=== PATIENT | female | born 1950 | race Caucasian/White ===

== ENCOUNTER → 2024-02-29 | Outpatient (CLI) | payer MEDICARE, OTHER ==
--- NOTE | 2024-02-29 14:36 | CT ---
INDICATION: Patient age:Female; 73 years old; Reason for study: [facility] Protocol for right knee replacement, M17.11 OA KNEE; PHH. COMPARISON: None TECHNIQUE: Thin section axial CT imaging of the entire right lower extremity was performed per [facility] protocol, wi thout the administration of IV contrast. Additional axial images of the bilateral hips and ankles wit h other knee were also obtained. Reformatted images in coronal and sagittal views obtained. FINDINGS: Diffuse bone demineralization. There is no evidence of acute fracture or dislocation. The hips are grossly unremarkable. Sclerotic bone island within the posterior left acetabulum. Right knee demonstrates advanced tricompartmental joint space narrowing with sclerosis and marginal o steophytosis. Subchondral cystic changes identified most prominently involving the medial tibiofemora l joint space with [id number] contact. Loose bodies identified along the posterior and anterior lat eral aspect of the medial tibiofemoral joint. Trace joint effusion. Incidental fabella. Additional Ba ker's cyst identified measuring 2.2 x 0.8 x 2.5 cm. Mild calcification of the arterial vasculature. The ankles grossly unremarkable. Bilateral posterior calcaneal enthesophytes. The visualized soft tissues appear grossly unremarkable within the limits of unenhanced CT. IMPRESSION: 1. [facility] protocol for right knee joint replacement. Advanced osteoarthritic changes of the right knee . [facility], , 02/29/2024 2:34 PM
== END | disposition home or self-care (01) ==
LOC: RADCTMAIN 13:14
PROVIDERS: ATTEND Orthopaedic Surgery
DX: M17.11 Unilateral primary osteoarthritis, right knee (principal); M71.21 Synovial cyst of popliteal space [Baker], right knee; M25.461 Effusion, right knee; F17.210 Nicotine dependence, cigarettes, uncomplicated; Z68.25 Body mass index [BMI] 25.0-25.9, adult; Z96.651 Presence of right artificial knee joint

== ENCOUNTER 2024-04-16 14:10 | Day surgery (SDC) | payer MEDICARE, OTHER ==
[~2024-04-16 14:10] MED LIST: DEXAMETHASONE SOD PHOSPHATE 4 MG/ML 1 ML VIAL IV ONE; HYDROmorphone 0.5 MG/0.5 ML SYRINGE IVP PRN; ONDANSETRON 4 MG/2 ML VIAL IVP ONE; TRANEXAMIC 1,000 MG/100ML-NACL 1,000 MG in SALINE 1 100ML.BAG IV PRN; TRANEXAMIC 1,000 MG/100ML-NACL 1,000 MG in SALINE 1 100ML.BAG IVPB PRN
[2024-04-16] MEDS: ACETAMINOPHEN TAB 500 MG TAB PO PRN (14:41)
[2024-04-16] MEDS: ONDANSETRON 4 MG/2 ML VIAL IVP PRN (14:42)
[2024-04-16] MEDS: IV FLUID CONTINUATION 1,000 ML IV ONE ×2 (14:42→19:41)
[2024-04-16] MEDS: LACTATED RINGERS 1,000 ML IV SCH (14:42)
[2024-04-16] MEDS: DOCUSATE 100 MG CAP PO PRN (14:42)
[2024-04-16] MEDS: oxyCODONE ER 10 MG TAB.ER.12H PO PRN (14:42)
[2024-04-16] MEDS: DEXAMETHASONE SOD PHOSPHATE 10 MG/ML 1 ML VIAL IV PRN (14:43)
[2024-04-16] MEDS: KETOROLAC 15 MG/ML 1 ML VIAL IVP PRN (14:43)
[2024-04-16] MEDS: FAMOTIDINE 20 MG/2 ML VIAL IVP PRN (14:43)
[2024-04-16 15:02] LABS: African American GFR (CKD) 63 (>60 ml/min/1.73 sqM); Anion Gap 7 mmol/L; Blood Urea Nitrogen 25 mg/dL (7-17); Calcium 9.7 mg/dL (8.4-10.2); Carbon Dioxide 29 mmol/L (22-30); Chloride 102 mmol/L (98-107); Glucose 94 mg/dL (74-99); Non-African American GFR(CKD) 54 (>60 ml/min/1.73 sqM); Potassium 4.5 mmol/L (3.5-5.1); Sodium 138 mmol/L (137-145)
[2024-04-16] MEDS: MIDAZOLAM 2 MG/2 ML VIAL IV ONE (15:20)
[2024-04-16] MEDS: fentaNYL (PF) 50 MCG/ML 2 ML AMP IVP PRN (15:20)
--- NOTE | 2024-04-16 15:38 | P.ANPRN ---
Procedure Note - Anesthesia - Nerve Block Performed Right Adductor Canal Single Time Out Performed: Yes (1520) Date of Procedure: 04/16/24 Procedure Start Time: 15: Procedure Stop Time: 15: Location of Patient: PreOp Indication: Acute Post-Operative Pain, Requested by Surgeon Specifically requested for management of pain by DrArleth: Dion Combs Sedation Type: Sedate with meaningful contact maintained Preparation: Sterile Prep Position: Supine Catheter: None Needle Types: Pajunk Needle Gauge: 21 Ultrasound used to visualize needle placement: Yes Ultrasound used to observe medication spread: Yes Injectate: 0.5% Ropivacaine (see comment for volume) (15cc+10cc nacl pf) Blood Aspirated: No Pain Paresthesia on Injection Noted: No Resistance on Injection: Normal Image Stored and Saved: Yes Events: Uneventful and Well Tolerated
--- NOTE | 2024-04-16 15:39 | P.ANPRN ---
Procedure Note - Anesthesia - Nerve Block Performed Right iPack Single Time Out Performed: Yes (1520) Date of Procedure: 04/16/24 Procedure Start Time: Procedure Stop Time: Location of Patient: PreOp Indication: Acute Post-Operative Pain, Requested by Surgeon Specifically requested for management of pain by DrArleth: Dion Combs Sedation Type: Sedate with meaningful contact maintained Preparation: Sterile Prep Position: Supine Catheter: None Needle Types: Pajunk Needle Gauge: 21 Ultrasound used to visualize needle placement: Yes Ultrasound used to observe medication spread: Yes Injectate: 0.5% Ropivacaine (see comment for volume) (15cc+10cc nacl pf coming in everything like that and he is like) Blood Aspirated: No Pain Paresthesia on Injection Noted: No Resistance on Injection: Normal Image Stored and Saved: Yes Events: Uneventful and Well Tolerated
[2024-04-16] MEDS ORDERED: LIDOCAINE 1% INJ 10MG/ML (20 ML MDV) ONE (16:33)
[2024-04-16] MEDS ORDERED: NEOSTIGMINE 1 MG/ML 10 ML VIAL ONE (16:33)
[2024-04-16] MEDS ORDERED: GLYCOPYRROLATE 0.2 MG/ML 2 ML VIAL ONE (16:33)
[2024-04-16] MEDS ORDERED: ROPIVACAINE 5 MG/ML 30 ML VIAL ONE (16:33)
[2024-04-16] MEDS ORDERED: TRANEXAMIC 1,000 MG/100ML-NACL PREMIX BAG ONE (16:33)
[2024-04-16] MEDS ORDERED: HYDROmorphone (PF) 1 MG/ML ONE (16:33)
[2024-04-16] MEDS ORDERED: ROCURONIUM 10 MG/ML (5 ML VIAL) IV ONE (16:33)
[2024-04-16] MEDS ORDERED: ePHEDrine 50 MG/ML 1 ML VIAL ONE (16:33)
[2024-04-16] MEDS ORDERED: PROPOFOL 10 MG/ML 20 ML VIAL IV ONE (16:33)
[2024-04-16] MEDS ORDERED: fentaNYL (PF) 50 MCG/ML 2 ML AMP ONE (16:33)
[2024-04-16] MEDS ORDERED: SUCCINYLCHOLINE CHLORIDE 200 MG/10 ML VIAL IV ONE (16:33)
[2024-04-16] MEDS ORDERED: SODIUM CHLORIDE 0.9% (PF) 10 ML VIAL ONE (16:33)
[2024-04-16] MEDS: ROPIVACAINE/EPI/CLONIDINE/KET 50 ML SYRINGE MISCELLANE PRN (17:18)
[2024-04-16] MEDS ORDERED: NALOXONE 0.4 MG/ML 1 ML VIAL IV PRN (18:46)
[2024-04-16] MEDS ORDERED: ONDANSETRON 4 MG/2 ML VIAL IVP PRN (18:46)
[2024-04-16] MEDS ORDERED: diazePAM 5 MG TAB PO PRN ×2 (18:46)
[2024-04-16] MEDS ORDERED: hydrOXYzine pamoate 25 MG CAP PO PRN (18:46)
[2024-04-16] MEDS ORDERED: MAGNESIUM HYDROXIDE 2,400 MG/30 ML CUP PO PRN (18:46)
[2024-04-16] MEDS ORDERED: HYDROcodone/APAP 10-325MG 1 EACH TAB PO PRN (18:46)
[2024-04-16] MEDS ORDERED: HYDROmorphone 0.5 MG/0.5 ML SYRINGE IVP PRN ×3 (18:46)
[2024-04-16] MEDS ORDERED: bisacodyL 10 MG SUPP RECTAL PRN (18:46)
[2024-04-16] MEDS ORDERED: NA PHOS,M-B/NA PHOS,DI-BA 133 ML ENEMA RECTAL PRN (18:46)
--- NOTE | 2024-04-16 19:35 | P.OP ---
Date of Procedure: 04/16/24 Preoperative Diagnosis: 1. 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 Former cigarette smoker Postoperative Diagnosis: Same Procedure(s) Performed: 1. Right total knee arthroplasty 2. Computer assisted musculoskeletal navigation using CT/MRI images Implants: 1. [place] [employer] CR Femur Size #5 2. Danielle [employer] Florien Tibial Base Size #4 with 12x50 mm stem 3. Danielle [employer] CS poly Size #4, 9-mm 4. [place] [employer] all poly patella, Size #32 Anesthesia: VALENTINA, regional Surgeon: Dion Combs Note Teller #1: Bassem Quintero Estimated Blood Loss (ml): 100 IV fluids (ml): 400 Pathology: none sent Condition: stable Disposition: PACU Indications for Procedure: I met with the patient preoperatively in the office setting and discussed treatment of their symptomatic knee arthritis. They failed a long course of nonsurgical treatment and elected to proceed with an elective total knee replacement. I discussed the potential risks and complications at length and ga ve them ample time to ask questions. Risks discussed included: risks from anesthesia, superficial site surgical infection, acute and/or chronic periprosthetic joint infection, delayed wound healing, drainage, wound necrosis, instability, stiffness, stiffness requiring manipulation and/or revision surgery, damage to local blood vessels or nerves, aseptic loosening of the implants, extensor mechanism issues including disruption, patellar maltracking, avascular necrosis etc., continued or worsened knee pain, generalized dissatisfaction with surgical outcome, need for revision surgery, an inability to regain preinjury level of function, DVT, PE, other medical complications, and possibly loss of life or limb. The patient voiced their understanding that while these are the most common complications other less common complications are possible. They provided both their verbal and written consent to go forward with surgery. The patient also has a history of smoking. She was able to quit prior to surgery. She was advised to refrain from smoking in the post operative period to lower her risk of infection and delayed wound healing. Operative Findings: Severe right knee arthritis with 18-degree preoperative flexion contracture and 12.5 degrees of varus Description of Procedure: The patient was identified in preoperative holding and the correct operative extremity was verified and marked with a marker. I reviewed the consent form with the patient at length. All of their questions were answered. The patient was given a block by anesthesia. They were then brought back to the operating room. They were transferred onto the operating room table where a general anesthetic, preoperative antibiotics, and tranexamic acid were administered by anesthesia. A tourniquet was applied to the proximal aspect of the operative extremity. The contralateral extremity was padded under the heel and secured to the operating room table with a nonsterile blue towel and tape. The ipsilateral arm was carefully draped across the patient's chest and secured with a pillow and foam. A post was applied over the lateral aspect of the ipsilateral thigh and a bolster was placed under the ipsilateral foot. I verified that the operative extremity was stable and the knee was flexed to 90. The operative extremity was then placed in a leg walter, nonsterile drapes were applied, and the extremity was prepped and draped sterilely in the standard sterile fashion. Prior to starting surgery timeout was performed identifying the correct patient, operative extremity, and procedure. The leg was then elevated, exsanguinated with an Esmarch bandage, and the tourniquet was inflated. An anterior midline incision was made sharply with a scalpel. Once I had dissected deep to the superficial fascial layer medial and lateral flaps were elevated. A medial parapatellar arthrotomy was created. Upon opening the knee joint there were diffuse arthritic changes in all 3 compartments. The anterior horn of the medial meniscus were sharply released and a medial release was performed around the posterior medial corner of the knee to facilitate retractor placement. The fat pad was excised with electrocautery. The patella was found to be severely arthritic and a provisional cut was made with a sagittal saw to facilitate mobilization of the extensor mechanism during the procedure. Remnants of the ACL and PCL were then excised from the notch. 4 mm pins were then placed within the incision in the medial distal femur and proximal tibia. Arrays were applied to the pins and I verified they were completely tightened. The knee was then registered with the [employer] robot and manipulations in implant position were made to balance the knee and opitmize implant position. Using the [employer] robotic saw all cuts were made in accordance with our plan. After all bony fragments had been removed the cuts were verified with the planar probe. The tibia was then subluxed forward and sized. The knee was brought into flexion and a lamina signing teacher was placed to allow removal of the meniscal remnants both medially and laterally as well as posterior osteophytes. Local anesthetic was then infiltrated around the joint capsule. Trial implants were then placed within the knee. Range of motion and collateral ligament tension was then evaluated. Adjustments in implant size and position were then made accordingly. Once the knee was felt to be appropriately balanced the Yosvany pins were removed. The patella was then recut, sized, and punched. A trial patellar button was then placed. With the trial components in place, the patella tracked midline. The femur was then drilled and the trial component removed. The trial tibial component was then appropriately rotated, pinned, and prepared for the keel. All trial components were then removed from the knee. The knee was thoroughly irrigated with pulsatile lavage. Cement was prepared via vacuum mixing in a bowl on the back table. I then hand pressurized cement into the femur and tibia and placed the implants beginning with the tibial base tray and poly liner, femoral component, and finally the patellar button. All extruded cement was removed including from the pin sites. Once the cement had hardened the knee was evaluated one final time with the final polyethylene liner in place. The knee had full extension and flexion and felt stable to varus and valgus stress throughout the arc of motion. The tourniquet was released and with the tourniquet down the patella tracked midline. All bleeders were controlled with electrocautery. The knee was then soaked for 3 minutes with a dilute Betadine soak. The knee was thoroughly irrigated using 3 L of sterile saline and pulsatile lavage. The extensor mechanism was then reapproximated using pop off Vicryl sutures followed by a running barbed suture. The knee was then closed in layers with a 0 strata fix for the deep fascial layer, 2-0 strata fix for the superficial subcutaneous layer and Monocryl and Steri-Strips for the skin. A sterile dressing was applied. I verified that all instrument, sponge, and sharp counts were correct. The patient was then transferred off the operating room table, extubated, and brought to recovery having tolerated the procedure well. Bassem Quintero PA-C was required as a skilled special education teaching assistant for patient positioning, draping, exposure, retraction, closure of wound and application of dressing PLAN: The patient can weight-bear as tolerated on the operative extremity. DVT prophylaxis with aspirin 81 mg twice a day based on preoperative risk stratification. Internal medicine for perioperative medical management. 2 doses of post-operative antibiotics. Physical therapy for gait training. Follow-up in the office in 2 weeks for wound check and x-rays of the knee including an AP and lateral.
--- NOTE | 2024-04-16 19:38 | XR ---
EXAMINATION TYPE: XR knee limited RT DATE OF EXAM: 04/16/2024 CLINICAL HISTORY: Postoperative evaluation Two views of the right knee are submitted. Identified are changes of total knee arthroplasty with femoral and tibial components appearing well seated. Postsurgical soft tissue changes are noted. Alignment is anatomic. [facility], , 04/16/2024 7:36 PM
[2024-04-16] MEDS: SENNOSIDES-DOCUSATE SODIUM 1 EACH TAB PO SCH (22:18)
[2024-04-16] MEDS: ASPIRIN 81 MG PO SCH (22:18)
[2024-04-16] MEDS: SODIUM CHLORIDE 0.9% 1,000 ML IV SCH (22:21)
--- NOTE | 2024-04-17 08:18 | P.DS ---
Providers Attending physician: Dion Combs Consults: 04/16/24 18:46 Consult Physician Routine Consulting Provider: Mally Christiansen Consult Reason/Comments: post op medical management Do you want consulting provider notified?: Yes Primary care physician: Mally Christiansen MD Hospital Course: This is a 73-year-old female patient, with past medical history of severe knee osteoarthritis, who failed nonsurgical conservative management. On 04/16/2024 the patient presented to the [facility] pre-op department for scheduled total knee arthroplasty. The patient tolerated the procedure well. The patient was transferred to the orthopedic floor. The patient had no acute events over night. The patient's pain has been well-controlled. Patient was examined at bedside. Patient is resting comfortably sitting on the edge of the bed. No apparent distress. They are awake, alert and able to answer questions. On inspection the surgical knee dressing is intact, there is no drainage or strikethrough. The skin surrounding the dressing is free of erythema. There is mild swelling in the operative thigh. Operative femoral nerve function is intact. The operative calf is soft to compression. The patient is able to actively plantarflex and dorsiflex their operative ankle and toes. Plan to discharge home today. Plan follow up in two weeks in our office. Please see med rec for a list of accurate medications. Dictation was produced using [employer] dictation software, please excuse any grammatical, word or spelling errors. Assessment: Postop day #1 status post right total knee arthroplasty for severe osteoarthritis by Dr. Combs Right knee pain Plan - Discharge Summary Discharge Rx Participant: No New Discharge Prescriptions: New Aspirin 81 mg PO BID #60 tab Docusate [Colace] 100 mg PO BID #60 capsule Ondansetron [Zofran] 4 mg PO Q8HR PRN #20 tab PRN Reason: Nausea HYDROcodone/APAP 5-325MG [[place] 5] 1 - 2 each PO Q6HR PRN #56 tab PRN Reason: Pain Omeprazole [PriLOSEC] 40 mg PO DAILY #30 cap Meloxicam 7.5 mg PO DAILY #30 tab No Action traMADol HCL 50 mg PO Q6H PRN PRN Reason: Breakthrough Pain lisinopriL [Prinivil] 20 mg PO DAILY Chlorthalidone 25 mg PO DAILY Meloxicam [Mobic] 15 mg PO DAILY Discharge Medication List Chlorthalidone 25 mg PO DAILY 04/14/24 [History] Meloxicam [Mobic] 15 mg PO DAILY 04/14/24 [History] lisinopriL [Prinivil] 20 mg PO DAILY 04/14/24 [History] traMADol HCL 50 mg PO Q6H PRN 04/14/24 [History] Aspirin 81 mg PO BID #60 tab 04/17/24 [Rx] Docusate [Colace] 100 mg PO BID #60 capsule 04/17/24 [Rx] HYDROcodone/APAP 5-325MG [[place] 5] 1 - 2 each PO Q6HR PRN #56 tab 04/17/24 [Rx] Meloxicam 7.5 mg PO DAILY #30 tab 04/17/24 [Rx] Omeprazole [PriLOSEC] 40 mg PO DAILY #30 cap 04/17/24 [Rx] Ondansetron [Zofran] 4 mg PO Q8HR PRN #20 tab 04/17/24 [Rx] Follow up Appointment(s)/Referral(s): Dion Combs MD [Medical Doctor] - 2 Weeks Activity/Diet/Wound Care/Special Instructions: 1. Weight-bear as tolerated on your operative extremity unless instructed otherwise. Use a walker or other assistive device to ambulate. 2. Leave surgical dressing in place. If your dressing becomes saturated with blood, there is drainage, or the dressing becomes loose please contact the office. 3. It is okay to shower with your surgical dressing, but do not submerge in water (no hot tubs, bath's, swimming etc.) 4. Take your blood clot prevention medication as prescribed (aspirin, Eliquis, Xarelto, and Plavix are commonly prescribed medications for blood clot prevention) 5. While taking Huron or Percocet for pain take a stool softener (Ex: Colace) and drink lots of water. 6. Keep all follow-up appointments as scheduled. You will usually be seen in 1-2 weeks following surgery. 7. Please contact the office with any questions or concerns [phone] Discharge Disposition: HOME WITH HOME HEALTH SERVICES
[2024-04-17] MEDS: HYDROcodone/APAP 5-325MG 1 EACH TAB PO PRN (08:25)
[2024-04-17 08:51] LABS: Basophils # (A) 0.02 X 10*3/uL (0.00-0.10); Basophils % (A) 0.1 %; Eosinophils # (A) 0 X 10*3/uL (0.04-0.35); Eosinophils % (A) 0 %; HCT 33.7 % (37.2-46.3); HGB 10.4 g/dL (12.0-15.0); Lymphocytes # (A) 1.15 X 10*3/uL (0.90-5.00); Lymphocytes % (A) 5.9 %; MCH 29.7 pg (27.0-32.0); MCHC 30.9 g/dL (32.0-37.0); MCV 96.3 FL (80.0-97.0); Monocytes % (A) 5.1 %; NRBC Per 100 WBC 0 X 10*3/uL (0.00-0.01); Neutrophils # (A) 17.17 X 10*3/uL (1.80-7.70); Neutrophils % (A) 88.4 %; Platelet Count 372 X 10*3/uL (140-440); RDW 12.3 % (11.5-14.5); WBC 19.44 X 10*3/uL (4.50-10.00)
[2024-04-17 09:31] VITALS: BP 139/67; PULSE 73; RESP 16; TEMP 97.6
--- NOTE | 2024-04-17 10:58 | P.CONS ---
History of Present Illness - Reason for Consult Consult date: 04/17/24 Medical Management Requesting physician: Dion Combs - History of Present Illness History of Presenting Illness: Patient is a pleasant 73-year-old female with a past medical history of hypertension, GERD, and osteoarthritis. She is currently admitted under orthopedic surgery team status post right total knee arthroplasty. Surgical procedure was completed secondary to severe right varus knee deformity with flexion contracture. Surgical procedure was completed by Dr. Combs. We were consulted for medical management throughout hospitalization. Patient was seen and fully evaluated in room 481. She is postoperative day 1. Patient was sitting up in the chair and appears to be doing well. She reports feeling mild to moderate postoperative pain but states she does receive relief from current pain medication regimen. She denies having any postoperative nausea or vomiting, denies having any difficulties with urination, and denies having any numbness/tingling/weakness in her extremities. Patient denies having any other complaints including headache, lightheadedness, dizziness, chest pain, palpitations, shortness of breath, abdominal pain, nausea, or vomiting. Review of systems: Pertinent positives and negatives as discussed in HPI, a complete review of systems was performed and all other systems are negative. Physical exam: Vital signs reviewed and stable. General: Nontoxic, no distress and appears stated age. Derm: Skin warm and dry, normal coloration for ethnicity. Head: Atraumatic, normocephalic and symmetric. Eyes: EOM's intact, no lid lag, and anicteric sclera Mouth: no lip lesions, mucus membranes moist Cardiovascular: regular rate and rhythm with normal S1S2, no murmur, positive posterior tibial pulses bilaterally, and cap refill < 2 seconds. Lungs: Respirations even, regular, and unlabored on room air. Lungs CTA bilaterally, no rhonchi, no rales, no wheezing, and no accessory muscle usage. Abdominal: soft, nontender to palpation, no guarding, no appreciable organomegaly Ext: No gross muscle atrophy, no edema, no contractures. Movement and sensation intact. Postsurgical dressing/Dylan wrap with ice pack in place to right knee. Neuro: Speech clear, face symmetrical and CN II-XII grossly intact with no noted focal neuro deficits Psych: Alert and oriented to person, place, time, and situation. Appropriate and pleasant affect. Assessment and Plan of Care: Status post right total knee arthroplasty -Management per primary admitting orthopedic surgery team including DVT prophylaxis, pain management, wound/dressing management, weightbearing, and PT/OT. -Currently DVT prophylaxis with aspirin 81 mg twice daily. Postoperative leukocytosis -WBC count 19.44. No signs of infection. This is believed to be reactive secondary to surgical procedure. No need for further intervention at this time. Acute postoperative blood loss anemia -Stable and expected finding, no need for transfusion or further interventions at this time. Hypertension -Monitor vital signs and continue daily medication regimen with lisinopril 20 mg daily and chlorthalidone 25 mg daily. GERD -Continue Prilosec 40 mg daily. Data reviewed: -Postoperative labs reviewed. CBC showing leukocytosis with WBC count of 19.44 and acute postoperative blood loss anemia with hemoglobin of 10.4. BMP revealed mild prerenal azotemia with BUN of 25 otherwise normal findings. -Vital signs reviewed and stable. Blood pressure 139/67, heart rate 73, respiratory rate 16, temp 97.6 F, and SpO2 of 97% on room air. Patient is medically optimized for discharge once cleared by primary admitting orthopedic surgery team. Thank you for allowing us to participate in the care of this pleasant patient. Do not hesitate to contact us with questions. [facility] can be [facility] all hours of the day at [phone] or via [employer]. Patient was seen independently by Nurse Practitioner. This document was prepared using [employer] dictation software. Please allow for errors in tattooer while rare they do occur. Raman Wyman NP rendered care for this patient independently, reviewed the findings and plan as documented in the note above and agree with plan. I did not physically speak with or examine the patient on this date. Past Medical History Past Medical History: Hypertension History of Any Multi-Drug Resistant Organisms: None Reported Past Surgical History: No Surgical Hx Reported Past Anesthesia/Blood Transfusion Reactions: Unable to Obtain Past Psychological History: No Psychological Hx Reported Smoking Status: Former smoker Past Alcohol Use History: None Reported Additional Past Alcohol Use History / Comment(s): quit a few month ago. Past Drug Use History: None Reported - Past Family History Father Family Medical History: No Reported History Medications and Allergies Home Medications Medication Instructions Recorded Confirmed Type Chlorthalidone 25 mg PO DAILY 04/14/24 04/14/24 History Meloxicam [Mobic] 15 mg PO DAILY 04/14/24 04/14/24 History lisinopriL [Prinivil] 20 mg PO DAILY 04/14/24 04/14/24 History traMADol HCL 50 mg PO Q6H PRN 04/14/24 04/14/24 History Aspirin 81 mg PO BID #60 tab 04/17/24 Rx Docusate [Colace] 100 mg PO BID #60 capsule 04/17/24 Rx HYDROcodone/APAP 5-325MG [[place] 5] 1 - 2 each PO Q6HR PRN #56 tab 04/17/24 Rx Meloxicam 7.5 mg PO DAILY #30 tab 04/17/24 Rx Omeprazole [PriLOSEC] 40 mg PO DAILY #30 cap 04/17/24 Rx Ondansetron [Zofran] 4 mg PO Q8HR PRN #20 tab 04/17/24 Rx Allergies Allergy/AdvReac Type Severity Reaction Status Date / Time No Known Allergies Allergy Verified 04/16/24 14:28 Physical Exam Vitals: Vital Signs Temp Pulse Pulse Resp BP BP BP 04/17/24 07:30 97.6 F 73 16 04/17/24 01:14 97.5 F L 80 14 109/63 04/16/24 21:54 77 104/61 04/16/24 21:39 78 102/55 04/16/24 21:24 81 107/62 04/16/24 21:09 89 117/65 04/16/24 20:54 98.0 F 93 16 114/67 04/16/24 20:33 83 16 105/59 04/16/24 20:17 83 14 97/55 04/16/24 20:03 84 16 99/54 04/16/24 19:48 93 16 112/58 04/16/24 19:33 85 16 103/55 04/16/24 19:19 82 16 99/54 04/16/24 19:03 97.9 F 95 14 105/55 04/16/24 15:30 70 16 129/64 04/16/24 14:37 98.2 F 92 16 137/73 BP Pulse Ox 04/17/24 07:30 139/67 97 04/17/24 01:14 96 04/16/24 21:54 93 L 04/16/24 21:39 92 L 04/16/24 21:24 92 L 04/16/24 21:09 95 04/16/24 20:54 95 04/16/24 20:33 97 04/16/24 20:17 98 04/16/24 20:03 94 L 04/16/24 19:48 98 04/16/24 19:33 98 04/16/24 19:19 99 04/16/24 19:03 97 04/16/24 15:30 99 04/16/24 14:37 97 Intake and Output 04/16/24 04/17/24 04/17/24 22:59 06:59 14:59 Intake Total 850 Output Total 100 Balance 750 Intake: IV 850 Output: Estimated Blood Loss 100 Other: # Voids 1 Weight 58.8 kg Results CBC & Chem 7: 04/17/24 03:21 04/16/24 14:45 Labs: Abnormal Lab Results - Last 24 Hours (Table) 04/16/24 04/17/24 Range/Units 14:45 03:21 WBC 19.44 H (4.50-10.00) X 10*3/uL RBC 3.50 L (4.10-5.20) X 10*6/uL Hgb 10.4 L (12.0-15.0) g/dL Hct 33.7 L (37.2-46.3) % MCHC 30.9 L (32.0-37.0) g/dL MPV 9.0 L (9.5-12.2) FL Immature Gran # 0.10 H (0.00-0.04) X 10*3/uL Neutrophils # 17.17 H (1.80-7.70) X 10*3/uL Eosinophils # 0 L (0.04-0.35) X 10*3/uL BUN 25 H (7-17) mg/dL
[2024-04-17] MEDS: lisinopriL 20 MG TAB PO SCH (11:38)
[2024-04-17] MEDS: CHLORTHALIDONE 25 MG TAB PO SCH (11:38)
== END 2024-04-17 11:42 | disposition home health service (06) ==
LOC: OR 14:10 → 4SSUR 18:50 → OR 04-17 11:42
PROVIDERS: ATTEND Orthopaedic Surgery
DX: M17.11 Unilateral primary osteoarthritis, right knee (principal); M21.161 Varus deformity, not elsewhere classified, right knee; G89.18 Other acute postprocedural pain; I10 Essential (primary) hypertension; K21.9 Gastro-esophageal reflux disease without esophagitis; Z79.1 Long term (current) use of non-steroidal anti-inflammatories (NSAID); Z79.82 Long term (current) use of aspirin; Z79.899 Other long term (current) drug therapy; Z87.891 Personal history of nicotine dependence
CPT/HCPCS: 0055T; 27447; 64447; 64999; 80048; 85025